=== PATIENT | female | born 1990 | race Caucasian/White ===

== ENCOUNTER 2017-12-15 00:52 | Inpatient (IN) | payer MEDICAID ==
[2017-12-15 00:52] VITALS: BMI 27.4
--- NOTE | 2017-12-15 01:09 | C.PDOC ---
History Of Present Illness patient wasa medically cleared at [facility] and accepted in transfer to [facility] unit by dr trujillo Time Seen by Provider: 12/15/17 01:06 Chief Complaint (Nursing): Psychiatric Evaluation History Per: Patient History/Exam Limitations: no limitations Onset/Duration Of Symptoms: Days Current Symptoms Are (Timing): Still Present Suicide/Self Injury Attempted (Context): None Modifying Factor(s): None Severity: Moderate Pain Scale Rating Of: 4 Associated Symptoms: Depression Involuntary Hold By: None Recent travel outside of the [place]: No Additional History Per: Patient Past Medical History Reviewed: Historical Data, Nursing Documentation, Vital Signs Vital Signs: Last Vital Signs Temp 97.9 F 12/15/17 00:57 Pulse 82 12/15/17 00:57 Resp 20 12/15/17 00:57 BP 102/68 12/15/17 00:57 Pulse Ox 96 12/15/17 00:57 - Medical History PMH: Anxiety, Depression Denies: Diabetes, Hepatitis, HIV, HTN, Seizures, Sexually Transmitted Disease - [facility] Procedures MEDICATION MANAGEMENT (10/27/17) Family History: States: No Known Family Hx - Social History Hx Alcohol Use: No Hx Substance Use: No - Immunization History Hx Tetanus Toxoid Vaccination: No Hx Influenza Vaccination: No Hx Pneumococcal Vaccination: No Review Of Systems Constitutional: Negative for: Fever, Chills Cardiovascular: Negative for: Chest Pain Respiratory: Negative for: Shortness of Breath Gastrointestinal: Negative for: Nausea Skin: Negative for: Rash Neurological: Negative for: Weakness Psych: Positive for: Depression Physical Exam - Physical Exam Appears: Non-toxic, No Acute Distress Cardiovascular: Rhythm Regular Respiratory: No Rales, No Rhonchi, No Wheezing Gastrointestinal/Abdominal: Soft, No Tenderness Extremity: Normal ROM Extremity: Bilateral: Atraumatic Neurological/Psych: Oriented x3 Gait: Steady ED Course And Treatment O2 Sat by Pulse Oximetry: 96 Pulse Ox Interpretation: Normal Disposition Discussed With : Alden Trujillo Comment: accepted the pt on his service and took over the care at 1:10 AM Doctor Will See Patient In The: Hospital Counseled Patient/Family Regarding: Studies Performed, Diagnosis - Disposition Disposition: HOSPITALIZED Disposition Time: 01:07 Condition: FAIR - POA Present On Arrival: None - Clinical Impression Clinical Impression: Schizophrenia Decision To Admit - Pt Status Changed To: Hospital Disposition Of: Inpatient - Admit Certification Admit to Inpatient:: After my assessment, the patient will require hospitalization for at least two midnights. This is because of the severity of symptoms shown, intensity of services needed, and/or the medical risk in this patient being treated as an outpatient. - InPatient: Physician Admission Certification: I certify that this patient requires 2 or more midnights of care for the following reason:: After my assessment, the patient will require hospitalization for at least two midnights. This is because of the severity of symptoms shown, intensity of services needed, and/or the medical risk in this patient being treated as an outpatient. - . Bed Request Type: Psychiatry Admitting Physician: Alden Trujillo Patient Diagnosis: Schizophrenia
--- NOTE | 2017-12-15 02:01 | PCM.BM ---
<Sumeet Armendariz - Last Filed: 12/15/17 01:58> Treatment Plan Problems - Problems identified on initial assessmt DELUSION/ PARANOIA Date Initiated: 12/15/17 Time Initiated: 01:30 Assessment reference: NA Status: Active MEDICATION NON-COMPLIANT Date Initiated: 12/15/17 Time Initiated: 01:30 Assessment reference: NA Status: Active Treatment assets and liabiliti Patient Assests: cooperative, self-reliant, ADL independent, physically healthy , negotiates basic needs Patient Liabilities: live alone, poor support system, relationship conflicts - Milieu Protocol Maintain good personal hygiene: daily Encourage regular showers, daily Remind patient to perform daily oral care, daily Assist patient to perform ADL's Maintain personal safety: every shift Educate patient to report safety concerns to staff, every shift Monitor environment for contraband/sharps Medication safety: Monitor for expected outcome, potential side effects: every shift, Assess barriers to learning: every shift, Assess readiness for medication education: every shift <Arianna Dumont - Last Filed: 12/15/17 11:32> - Diagnosis (1) Schizophrenia Status: Acute Interventions: 12/15/17 11:33 * Assess/adjust medications daily and /or as needed * See patient on an individual basis 7x/week to assess status of hallucinations * Discuss risks, benefits, side effects and alternatives of medications * <Nelly Monterroso - Last Filed: 12/15/17 16:49> Family Contact Family involvement: Patient does not wish Family/SO involvement Family contact: Patient declines to allow family contact at present - Goals for Treatment Patient goals for treatment: "I want to go to [facility] IDT program." Discharge/Continuing Care - Education Needs Education Needs: Patient Medication, Patient Diagnosis/Disease Process, Patient Coping Skills, Patient Anger Management skills - Discharge Discharge Criteria: Free of Suicidal thoughts, Ability to care for self, Reduction of target symptoms Discharge to:: Home - Treatment Team Participation Discussed with Family/SO: No Was Patient/Family/SO present at Treatment Team Meeting: Yes
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
--- NOTE | 2017-12-16 12:28 | PCM.PYCHPN ---
Psychiatric Progress Note - Psychiatric Progress Note Patient seen today, length of contact: 16 min Patient Chief Complaint: I'm feeling fine' Problems Identified/Issues Discussed: Patient seen and evaluated, chart reviewed and discussed with the nurse. Patient remained isolated, confined and withdrawn. Patient still appears paranoid and delusional. She appears more organized and less internally preoccupied than yesterday She is taking medication and denies any side effects. Symptoms are improving but needs more time for stabilization. Supportive therapy and psychoeducation were given. Medication Change: Yes (increase Risperdal) Medical Record Reviewed: Yes Mental Status Examination - Cognitive Function Orientation: Person, Place, Situation, Time Memory: Intact Attention: WNL Concentration: WNL Association: Loose Fund of Knowledge: Poor - Mood Mood: Depressed, Anxious - Affect Affect: Constricted - Speech Speech: Soft - Formal Thought Process Formal Thought Process: Paranoia, Loosening of associations - Suicidal Ideation Suicidal Ideation: No - Homicidal Ideation Homicidal Ideation: No Goal/Treatment Plan - Goal/Treatment Plan Need for Continued Stay: Severe depression anxiety, Severe functional impairment Progress Toward Problem(s) and Goals/Treatment Plan: Schizophrenia paranoid type continuous -CBT -Psychoeducation -Supportive therapy, group therapy, individual therapy -Risperdal 1 mg PO Daily -Risperdal 3 mg PO QHS -Cogentin 1 mg PO QHS -Trazodone 100 mg by mouth daily at bedtime -Ativan 1 mg by mouth every 6 hours when necessary -Hydroxyzine 25 mg by mouth every 6 hours when necessary - Smoking Cessation Smoking Cessation Initiated: No
[2017-12-17] MEDS ORDERED: Pneumococcal 23-Valent Vaccine IM ONE (10:00)
[2017-12-17] MEDS ORDERED: Paliperidone Palmitate 234 MG/1.5 ML SYR IM ONE (11:00)
[2017-12-18 06:27] VITALS: O2SAT 98
[2017-12-18] MEDS ORDERED: Patient's Own Injectable IM ONE (11:00)
--- NOTE | 2017-12-18 19:45 | PCM.PYCHPN ---
Psychiatric Progress Note - Psychiatric Progress Note Patient seen today, length of contact: 16 min Patient Chief Complaint: "I'm fine" Problems Identified/Issues Discussed: The pt is seen, chart reviewed, case discussed with staff. Support given. No new symptoms reported, improving slowly and needs more time Still psychotic but improving Invega Sustenna discussed but she is reluctant - psychoed given No SEs from medications, risks discussed. After care discussed Medication Change: No Medical Record Reviewed: Yes Mental Status Examination - Cognitive Function Orientation: Person, Place, Situation, Time Memory: Intact Attention: WNL Concentration: WNL Association: Loose Fund of Knowledge: Poor - Mood Mood: Anxious - Affect Affect: Constricted - Speech Speech: Soft - Formal Thought Process Formal Thought Process: Delusions, Paranoia, Loosening of associations - Suicidal Ideation Suicidal Ideation: No - Homicidal Ideation Homicidal Ideation: No Goal/Treatment Plan - Goal/Treatment Plan Need for Continued Stay: Severe depression anxiety, Discharge may exacerbated symptoms, Severe functional impairment Progress Toward Problem(s) and Goals/Treatment Plan: Continue meds Invega Sustenna tomorrow Support and psychoed Groups and indiv tx family contact
--- NOTE | 2017-12-18 19:49 | PCM.PYCHPN ---
Psychiatric Progress Note - Psychiatric Progress Note Patient seen today, length of contact: 16 min Patient Chief Complaint: "I'm OK" Problems Identified/Issues Discussed: The pt is seen, chart reviewed, case discussed with staff. Support given. Psychoed given No new symptoms reported, improving slowly and needs more time Still psychotic but improving slowly. Her insight is low yet Invega Sustenna is refused today - will try again tomorrow No SEs from medications, risks discussed. After care discussed briefly Medication Change: Yes (invega sustenna added) Medical Record Reviewed: Yes Mental Status Examination - Cognitive Function Orientation: Person, Place, Situation, Time Memory: Intact Attention: WNL Concentration: WNL Association: Loose Fund of Knowledge: Poor - Mood Mood: Anxious - Affect Affect: Constricted - Speech Speech: Soft - Formal Thought Process Formal Thought Process: Delusions, Paranoia, Loosening of associations - Suicidal Ideation Suicidal Ideation: No - Homicidal Ideation Homicidal Ideation: No Goal/Treatment Plan - Goal/Treatment Plan Need for Continued Stay: Severe depression anxiety, Discharge may exacerbated symptoms, Severe functional impairment Progress Toward Problem(s) and Goals/Treatment Plan: Continue meds Invega Sustenna tomorrow will be tried again Support and psychoed Groups and indiv eleazar family contact Estimated Date of D/C: 12/22/17
--- NOTE | 2017-12-19 11:38 | PCM.PYCHPN ---
Psychiatric Progress Note - Psychiatric Progress Note Patient seen today, length of contact: 15 min Patient Chief Complaint: "I'm really fine" Problems Identified/Issues Discussed: The pt is seen, chart reviewed, case discussed with staff. Support given, CBT and [place] used briefly No new symptoms reported, improving slowly and needs more time No SEs from medications, risks discussed. Yet, she still refused Invega Sustena After care discussed Medication Change: No Medical Record Reviewed: Yes Mental Status Examination - Cognitive Function Orientation: Person, Place, Situation, Time Memory: Intact Attention: WNL Concentration: WNL Association: Loose Fund of Knowledge: Poor - Mood Mood: Anxious - Affect Affect: Constricted - Speech Speech: Soft - Formal Thought Process Formal Thought Process: Delusions, Paranoia, Loosening of associations - Suicidal Ideation Suicidal Ideation: No - Homicidal Ideation Homicidal Ideation: No Goal/Treatment Plan - Goal/Treatment Plan Need for Continued Stay: Severe depression anxiety, Discharge may exacerbated symptoms, Severe functional impairment Progress Toward Problem(s) and Goals/Treatment Plan: Continue meds Invega Sustenna tomorrow will be tried again Support and psychoed Groups and indiv tx family contact Estimated Date of D/C: 12/22/17
--- NOTE | 2017-12-20 14:36 | PCM.PYCHPN ---
Psychiatric Progress Note - Psychiatric Progress Note Patient seen today, length of contact: 17 min Patient Chief Complaint: I'm feeling fine' Problems Identified/Issues Discussed: Patient seen and evaluated, chart reviewed and discussed with the nurse. Patient remained isolated, confined and withdrawn. Patient still appears paranoid and delusional. She appears more organized and less internally preoccupied than yesterday She is taking medication and denies any side effects. Symptoms are improving but needs more time for stabilization. Supportive therapy and psychoeducation were given. Medication Change: No Medical Record Reviewed: Yes Mental Status Examination - Cognitive Function Orientation: Person, Place, Situation, Time Memory: Intact Attention: WNL Concentration: WNL Association: Loose Fund of Knowledge: Poor - Mood Mood: Anxious - Affect Affect: Constricted - Speech Speech: Soft - Formal Thought Process Formal Thought Process: Delusions, Paranoia, Loosening of associations - Suicidal Ideation Suicidal Ideation: No - Homicidal Ideation Homicidal Ideation: No Goal/Treatment Plan - Goal/Treatment Plan Need for Continued Stay: Severe depression anxiety, Discharge may exacerbated symptoms, Severe functional impairment Progress Toward Problem(s) and Goals/Treatment Plan: Schizophrenia paranoid type continuous -CBT -Psychoeducation -Supportive therapy, group therapy, individual therapy -Risperdal 1 mg PO Daily -Risperdal 3 mg PO QHS -Cogentin 1 mg PO QHS -Trazodone 100 mg by mouth daily at bedtime -Ativan 1 mg by mouth every 6 hours when necessary -Hydroxyzine 25 mg by mouth every 6 hours when necessary Estimated Date of D/C: 12/22/17
--- NOTE | 2017-12-20 16:10 | PCM.BM ---
<Nelly Monterroso - Last Filed: 12/20/17 16:09> Treatment Plan Problems - Problems identified on initial assessmt DELUSION/ PARANOIA Date Initiated: 12/15/17 Time Initiated: :30 Assessment reference: NA Status: Active MEDICATION NON-COMPLIANT Date Initiated: 12/15/17 Time Initiated: 01:30 Assessment reference: NA Status: Active Treatment assets and liabiliti Patient Assests: cooperative, self-reliant, ADL independent, physically healthy , negotiates basic needs Patient Liabilities: live alone, poor support system, relationship conflicts - Milieu Protocol Maintain good personal hygiene: daily Encourage regular showers, daily Remind patient to perform daily oral care, daily Assist patient to perform ADL's Maintain personal safety: every shift Educate patient to report safety concerns to staff, every shift Monitor environment for contraband/sharps Medication safety: Monitor for expected outcome, potential side effects: every shift, Assess barriers to learning: every shift, Assess readiness for medication education: every shift Milieu Narrative: Schizophrenia paranoid type continuous -CBT -Psychoeducation -Supportive therapy, group therapy, individual therapy -Risperdal 1 mg PO Daily -Risperdal 3 mg PO QHS -Cogentin 1 mg PO QHS -Trazodone 100 mg by mouth daily at bedtime -Ativan 1 mg by mouth every 6 hours when necessary -Hydroxyzine 25 mg by mouth every 6 hours when necessary Family Contact Family involvement: Patient does not wish Family/SO involvement Family contact: Patient declines to allow family contact at present - Goals for Treatment Patient goals for treatment: "I want to go to [facility] program." Discharge/Continuing Care - Education Needs Education Needs: Patient Medication, Patient Diagnosis/Disease Process, Patient Coping Skills, Patient Anger Management skills - Discharge Discharge Criteria: Free of Suicidal thoughts, Ability to care for self, Reduction of target symptoms Discharge to:: Home - Treatment Team Participation Patient/Family/SO Statement: Schizophrenia paranoid type continuous -CBT -Psychoeducation -Supportive therapy, group therapy, individual therapy -Risperdal 1 mg PO Daily -Risperdal 3 mg PO QHS -Cogentin 1 mg PO QHS -Trazodone 100 mg by mouth daily at bedtime -Ativan 1 mg by mouth every 6 hours when necessary -Hydroxyzine 25 mg by mouth every 6 hours when necessary Discussed with Family/SO: No Was Patient/Family/SO present at Treatment Team Meeting: Yes Treatment Plan Review - Problem DELUSION/ PARANOIA Time Initiated: :30 MEDICATION NON-COMPLIANT Time Initiated: :30 - Discharge / Continuing Care Discharge to:: Home Behavioral Health Services: Outpatient therapy Health Needs: Follow up care/test, Medications/Rx <Arianna Dumont - Last Filed: 12/22/17 14:44> - Diagnosis (1) Schizophrenia Status: Acute Interventions: 12/22/17 14:44 * Assess/adjust medications daily and /or as needed * See patient on an individual basis 7x/week to assess status of hallucinations * Discuss risks, benefits, side effects and alternatives of medications *
[2017-12-24 06:53] VITALS: BP 105/72; PULSE 98; RESP 20; TEMP 98.2
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
== END 2017-12-24 12:23 | disposition home or self-care (01) | DRG 430 ==
LOC: C.ER 00:52 → C.5E 01:06
PROVIDERS: ADMIT Psychiatry & Neurology Psychiatry; ATTEND Psychiatry & Neurology Psychiatry
PROC: GZ3ZZZZ Medication Management (ICD-10-PCS; principal; 2017-12-15)
PROC: GZHZZZZ Group Psychotherapy (ICD-10-PCS; 2017-12-15)
PROC: GZ56ZZZ Individual Psychotherapy, Supportive (ICD-10-PCS; 2017-12-15)
DX: F20.0 Paranoid schizophrenia (principal)